=== PATIENT | male | born 1965 | race Caucasian/White ===

== ENCOUNTER 2019-05-19 23:54 | Emergency (ER) | payer SELFPAY ==
--- NOTE | 2019-05-20 00:58 | ED ---
Upper Extremity Pain - HPI Summary HPI Summary: Patient complains of left wrist pain status post fall. Patient admits to EtOH at a [employer] this evening. Patient states fall due to slipping on a apple. Fall was witnessed, no head injury, LOC. Patient denies vision change, AUSTIN, N/V, any other pain, injury or symptoms. Patient ambulatory. - History of Current Complaint Chief Complaint: EDExtremityUpper Stated Complaint: FALL, LEFT WRIST INJURY PER PT Time Seen by Provider: 05/20/19 00:52 Hx Obtained From: Patient Mechanism Of Injury: Fall From A Standing Position Onset/Duration: Started Hours Ago Timing: Constant Severity Initially: Moderate Severity Currently: Moderate Pain Location: Wrist Character: Dull, Aching, Throbbing Aggravating Factor(s): Movement Alleviating Factor(s): Nothing Associated Signs & Symptoms: Positive: Swelling - Allergies/Home Medications Allergies/Adverse Reactions: Allergies Allergy/AdvReac Type Severity Reaction Status Date / Time No Known Allergies Allergy Verified 08/04/14 09:54 PMH/Surg Hx/FS Hx/Imm Hx Endocrine/Hematology History: Denies: Hx Anticoagulant Therapy Cardiovascular History: Denies: Hx Pacemaker/ICD History: Denies: Hx Dialysis Sensory History: Denies: Hx Contacts or Glasses, Hx Hearing Aid Opthamlomology History: Denies: Hx Contacts or Glasses EENT History: Denies: Hx Deafness Neurological History: Denies: Hx Developmental Delay Infectious Disease History: No Infectious Disease History: Reports: Hx Hepatitis - HEP B, MONO 30YRS AGO Denies: Traveled Outside the [place] in Last 30 Days - Family History Known Family History: Positive: Non-Contributory - Social History Alcohol Use: Daily Alcohol Amount: 2-3/NIGHT Substance Use Type: Reports: None Smoking Status (MU): Current Every Day Smoker Length of Time of Smoking/Using Tobacco: 20 YRS Have You Smoked in the Last Year: Yes Review of Systems Constitutional: Negative Eyes: Negative ENT: Negative Cardiovascular: Negative Respiratory: Negative Gastrointestinal: Negative Genitourinary: Negative Musculoskeletal: Other Skin: Negative Neurological: Negative Psychological: Normal All Other Systems Reviewed And Are Negative: Yes Physical Exam - Summary Physical Exam Summary: Swelling and deformity to medial left wrist. No snuffbox tenderness. PMS intact distally. Full range of motion of left elbow. Triage Information Reviewed: Yes Vital Signs On Initial Exam: Initial Vitals Temp Pulse Resp BP Pulse Ox 97.4 F 70 18 110/74 96 05/19/19 23:57 05/19/19 23:57 05/19/19 23:57 05/19/19 23:57 05/19/19 23:57 Vital Signs Reviewed: Yes Appearance: Positive: Well-Appearing Skin: Positive: Warm Head/Face: Positive: Normal Head/Face Inspection Eyes: Positive: Normal Neck: Positive: Supple Respiratory/Lung Sounds: Positive: Clear to Auscultation Cardiovascular: Positive: Normal Abdomen Description: Positive: Nontender Musculoskeletal: Positive: Normal Neurological: Positive: Normal Psychiatric: Positive: Normal AVPU Assessment: Alert - Monica Coma Scale Best Eye Response: 4 - Spontaneous Best Motor Response: 6 - Obeys Commands Best Verbal Response: 5 - Oriented Coma Scale Total: 15 Procedures - Splinting 1 Location: left wrist Hand-Made Type: orthoglass Splint: volar Pre-Proc Neuro Vasc Exam: normal Post-Proc Neuro Vasc Exam: normal Diagnostics - Vital Signs Vital Signs Temp Pulse Resp BP Pulse Ox 05/19/19 23:57 97.4 F 70 18 110/74 96 - Laboratory Lab Statement: Any lab studies that have been ordered have been reviewed, and results considered in the medical decision making process. Course/Dx - Course Course Of Treatment: Patient complains of left wrist pain status post fall. Patient admits to EtOH at a [employer] this evening. Patient states fall due to slipping on a apple. Fall was witnessed, no head injury, LOC. Patient denies vision change, AUSTIN, N/V, any other pain, injury or symptoms. Patient ambulatory. Vital signs within normal limits. X-ray positive for distal radius fracture. Volar splint applied by this provider. - Diagnoses Provider Diagnoses: Distal radius fracture, left Discharge ED - Sign-Out/Discharge Documenting (check all that apply): Patient Departure Patient Received Moderate/Deep Sedation with Procedure: No - Discharge Plan Condition: Stable Disposition: HOME Prescriptions: Oxycodone HCl 5 mg PO Q6H 2 Days #6 tablet MDD 4 tabs Patient Education Materials: Wrist Fracture in Adults (ED) Referrals: No Primary Care Phys,NOPCP [Primary Care Provider] - Danny Teran MD [Medical Doctor] - Additional Instructions: Call clinic of orthopedics Dr. Teran today to arrange appointment for further evaluation. - Billing Disposition and Condition Condition: STABLE Disposition: Home
[2019-05-20] MEDS ORDERED: Ibuprofen TAB* 600 MG PO ONE (01:17)
[2019-05-20] MEDS ORDERED: Ibuprofen TAB* 800 MG PO ONE (01:21)
[2019-05-20 05:12] VITALS: BP 142/81
--- NOTE | 2019-05-20 11:29 | PN ---
Progress Note - Progress Note Date of Service: 05/19/19 Note: Xray wrist per radiology: IMPRESSION: TRANSVERSE NONDISPLACED FRACTURE OF THE DISTAL RADIUS WITH A SLIGHTLY DISPLACED FRACTURE OF THE STYLOID PROCESS OF THE ULNA. R2 Preliminary Imaging Read No change in treatment needed at this time.
== END 2019-05-20 05:10 | disposition home or self-care (01) ==
LOC: ED 23:54
DX: S52.502A Unspecified fracture of the lower end of left radius, initial encounter for closed fracture (principal); M25.532 Pain in left wrist; R60.0 Localized edema; F17.210 Nicotine dependence, cigarettes, uncomplicated; W19.XXXA Unspecified fall, initial encounter; Y92.9 Unspecified place or not applicable
CPT/HCPCS: 99282; A9270-GY

== ENCOUNTER 2019-07-26 19:40 | Emergency (ER) | payer SELFPAY ==
--- NOTE | 2019-07-26 19:49 | ED ---
Substance Abuse/Use - HPI Summary HPI Summary: This pt is a 54 Y/ O M brought into [facility] by EMS for public intoxication. EMS states that he was found on his back when they arrived to the scene. He states that he was out drinking. He denies any fevers, chills, N/V, SOB, headaches, and CP. He states no aggravating or alleviating factors. He has no pertinent PMHx. He is a level 5 caveat due to his altered mental status. - History Of Current Complaint Chief Complaint: EDSubstanceAbuse Stated Complaint: ETOH PER EMS Time Seen by Provider: 07/26/19 19:46 Hx Obtained From: Patient, EMS Hx From Patient Unobtainable Due To: Altered Mental Status - Pt is a level 5 caveat due to his level of intoxication Severity Currently: Severe Aggravating Factor(s): Nothing Alleviating Factor(s): Nothing Associated Signs And Symptoms: Negative - fevers, chills, N/V, SOB, headaches, and CP - Allergies/Home Medications Allergies/Adverse Reactions: Allergies Allergy/AdvReac Type Severity Reaction Status Date / Time No Known Allergies Allergy Verified 08/04/14 09:54 Home Medications: Home Medications NK [No Home Medications Reported] 07/26/19 [History Confirmed 07/26/19] PMH/Surg Hx/FS Hx/Imm Hx Previously Healthy: Yes Endocrine/Hematology History: Denies: Hx Anticoagulant Therapy Cardiovascular History: Denies: Hx Pacemaker/ICD History: Denies: Hx Dialysis Sensory History: Denies: Hx Contacts or Glasses, Hx Deafness, Hx Hearing Aid Opthamlomology History: Denies: Hx Contacts or Glasses Neurological History: Denies: Hx Developmental Delay Infectious Disease History: Reports: Hx Hepatitis - HEP B, MONO 30YRS AGO - Family History Known Family History: Positive: Other - Pt is unable to remember due to his level of intoxication - Social History Occupation: Employed Full-time Lives: Alone Alcohol Use: Daily Alcohol Amount: 2-3/NIGHT Hx Substance Use: No Substance Use Type: Reports: None Hx Tobacco Use: Yes Smoking Status (MU): Current Every Day Smoker Length of Time of Smoking/Using Tobacco: 20 YRS Have You Smoked in the Last Year: Yes Review of Systems - ROS Summary Review of Systems Summary: THIS PT IS A LEVEL 5 CAVEAT DUE TO HIS LEVEL OF INTOXICATION Negative: Fever, Chills Negative: Chest Pain Negative: Shortness Of Breath Negative: Vomiting, Nausea Neurological: Other - intoxicated Negative: Headache All Other Systems Reviewed And Are Negative: Yes Physical Exam - Summary Physical Exam Summary: THIS PT IS A LEVEL 5 CAVEAT DUE TO HIS LEVEL OF INTOXICATION. Appearance: Well-appearing, Well-nourished, lying in bed comfortable, No obvious signs of trauma Skin: Warm, dry, no obvious rash Eyes: sclera anicteric, no conjunctival pallor ENT: mucous membranes moist Neck: deferred Respiratory: No signs of respiratory distress Cardiovascular: Appears well perfused, pulses are nml Abdomen: deferred Musculoskeletal: Moving all 4 extremities without obvious discomfort Neurological: Awake and alert, mentation is normal, speech is slurred, obviously intoxicated. Psychiatric: affect is normal, does not appear anxious or depressed Triage Information Reviewed: Yes Vital Signs Reviewed: Yes Completion Of Physical Exam Limited Due To: Level 5 - DUE TO HIS LEVEL OF INTOXICATION Procedures - Sedation Patient Received Moderate/Deep Sedation with Procedure: No Course/Dx - Course Course Of Treatment: This pt is a 54 Y/ O M brought into [facility] by EMS for public intoxication. EMS states that he was found on his back when they arrived to the scene. He states that he was out drinking. He is a level 5 caveat due to his altered mental status. His PE found no obvious signs of trauma and found that he is heavily intoxicated. He will be discharged home when his KATJA has lowered to acceptable levels. - Diagnoses Provider Diagnoses: Alcohol intoxication Discharge ED - Sign-Out/Discharge Documenting (check all that apply): Patient Departure - Discharge Plan Condition: Improved Disposition: HOME Patient Education Materials: Alcohol Intoxication (ED) Referrals: [facility] [Outside] - If Needed [facility] [Outside] - If Needed - Billing Disposition and Condition Condition: IMPROVED Disposition: Home - Attestation Statements Document Initiated by Scribe: Yes Documenting Scribe: Maxime Boone Provider For Whom Maryann is Documenting (Include Credential): Óscar Emanuel MD Scribe Attestation: Maxime De Luna, scribed for Óscar Emanuel MD on 07/27/19 at 1826. Scribe Documentation Reviewed: Yes Provider Attestation: The documentation as recorded by the Maxime avalos accurately reflects the service I personally performed and the decisions made by meÓscar MD Status of Scribe Document: Viewed
--- OUTSIDE RECORDS SUMMARY | 2019-07-27 02:17 | XMS REPORT | Continuity of Care Document ---
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 Problems Description No Information Available Social History Type Date Description Comments Sex Unknown ETOH Use Currently consumes 14 drinks per week alcohol Tobacco Use Start: Unknown Patient is a current smoke 1/2 pack per smoker, smokes every day day Smoking Status Reviewed: 07/24/19 Patient is a current smoke 1/2 pack per smoker, smokes every day day Exercise Exercises regularly Type/Frequency Allergies, Adverse Reactions, Alerts Description No Known Drug Allergies Medications Description No Active Medications Immunizations Description No Information Available Vital Signs Date Vital Result Comment 07/24/2019 8:01am Height 71 inches 5'11" Weight 235.00 lb Heart Rate 76 /min Body Temperature 97.5 F O2 % BldC Oximetry 97 % BMI (Body Mass Index) 32.8 kg/m2 06/26/2019 9:38am Height 71 inches 5'11" Weight 235.00 lb BP Systolic 164 mmHg BP Diastolic 94 mmHg Body Temperature 98.0 F BMI (Body Mass Index) 32.8 kg/m2 Results Description No Information Available Procedures Date Code Description Status 05/27/2019 87024 Short Arm Cast Application Completed Medical Devices Description No Information Available Encounters Type Date Location Provider Dx Diagnosis Office Visit 06/26/2019 [facility] Karma Gonzalez S52.612D [facility] subs for clos fx w routn heal S52.552D Oth extrartic fx low end l rad, 7thD Office Visit 06/12/2019 10:15a [facility] Karma S52.612D Disp fx of l at [facility] M.D. ulna styloid pro, subs for clos fx w routn heal S52.552D Oth extrartic fx low end l rad, 7thD Office Visit 06/05/2019 8:30a [facility] Saira Stone, S52.612D Disp fx of l at [place] RPA-C ulna styloid pro, subs for clos fx w routn heal S52.552D Oth extrartic fx low end l rad, 7thD Office Visit 05/27/2019 9:30a [facility] Karma S52.612A Disp fx of Orthopedics at [facility]. left ulna [place] styloid process, init for clos fx S52.552A Oth extrartic fracture of lower end of left radius, init Assessments Date Code Description Provider 07/24/2019 S52.612D Displaced fracture of left ulna styloid Saira Bitting, RPA-C process, subsequent encounter for closed fracture with routine healing 07/24/2019 S52.552D Other extraarticular fracture of lower end Saira Bitting, RPA-C of left radius, subsequent encounter for closed fracture with routine healing 06/26/2019 S52.612D Displaced fracture of left ulna styloid Karma Gonzalez M.D. process, subsequent encounter for closed fracture with routine healing 06/26/2019 S52.552D Other extraarticular fracture of lower end Karma Gonzalez M.D. of left radius, subsequent encounter for closed fracture with routine healing 06/12/2019 S52.612D Displaced fracture of left ulna styloid Karma Gonzalez M.D. process, subsequent encounter for closed fracture with routine healing 06/12/2019 S52.552D Other extraarticular fracture of lower end Karma Gonzalez M.D. of left radius, subsequent encounter for closed fracture with routine healing 06/05/2019 S52.612D Displaced fracture of left ulna styloid Saira Bitting, RPA-C process, subsequent encounter for closed fracture with routine healing 06/05/2019 S52.552D Other extraarticular fracture of lower end Saira Bitting, RPA-C of left radius, subsequent encounter for closed fracture with routine healing 05/27/2019 S52.612A Displaced fracture of left ulna styloid Karma Gonzalez M.D. process, initial encounter for closed fracture 05/27/2019 S52.552A Other extraarticular fracture of lower end Karma Gonzalez M.D. of left radius, initial encounter for closed fracture Plan of Treatment 07/24/2019 - Saira Stone, [facility]-[id number] Displaced fracture of left ulna styloid process, subsequent encounter for closed fracture with routine [id number] Other extraarticular fracture of lower end of left radius, subsequent encounter for closed fracture with routine healingNew Therapy: Physical TherapyFollow up:Follow up: As needed Functional Status Description No Information Available Mental Status Description No Information Available Referrals Description No Information Available
--- OUTSIDE RECORDS SUMMARY | 2019-07-27 02:17 | XMS REPORT | Continuity of Care Document ---
:1965 External Reference #:[id number] Author Name Karma Gonzalez M.D. (transmitted by agent of provider Karl Andres) Address [address] [place] [address] Care Team Providers Name Role Phone Patient's Choice Care Team Information [place] Upholsterer Unavailable Problems Description No Information Available Social History Type Date Description Comments Sex Unknown ETOH Use Currently consumes 14 drinks per week alcohol Tobacco Use Start: Unknown Patient is a current smoke 1/2 pack per smoker, smokes every day day Smoking Status Reviewed: 06/26/19 Patient is a current smoke 1/2 pack per smoker, smokes every day day Exercise Exercises regularly Type/Frequency Allergies, Adverse Reactions, Alerts Description No Known Drug Allergies Medications Active Medications SIG Qnty Indications Ordering Provider Date Oxycodone HCL 1-2 tabs po q 60tabs Norman Keenan, 07/30/2014 5mg Tablets 3-6 hrs prn M.D. Hydrocodone/Acetaminop Unknown hen Immunizations Description No Information Available Vital Signs Date Vital Result Comment 06/26/2019 9:38am Height 71 inches 5'11" Weight 235.00 lb BP Systolic 164 mmHg BP Diastolic 94 mmHg Body Temperature 98.0 F BMI (Body Mass Index) 32.8 kg/m2 06/12/2019 9:54am Height 71 inches 5'11" Weight 230.00 lb Heart Rate 116 /min BP Systolic 164 mmHg BP Diastolic 82 mmHg BMI (Body Mass Index) 32.1 kg/m2 Results Description No Information Available Procedures Date Code Description Status 05/27/2019 24987 Short Arm Cast Application Completed Medical Devices Description No Information Available Encounters Type Date Location Provider Dx Diagnosis Office Visit 06/12/2019 [facility] Karma Gonzalez, S52.612D Disp fx of l 10:15a at [facility] ulna styloid pro, subs for clos fx w routn heal S52.552D Oth extrartic fx low end l rad, 7thD Office Visit 06/05/2019 8:30a [facility] Saira Stone, S52.612D Disp fx of l at [place] RPA-C ulna styloid pro, subs for clos fx w routn heal S52.552D Oth extrartic fx low end l rad, 7thD Office Visit 05/27/2019 9:30a [facility] Karma S52.612A Disp fx of Orthopedics at [facility] Gonzalez left ulna [place] styloid process, init for clos fx S52.552A Oth extrartic fracture of lower end of left radius, init Assessments Date Code Description Provider 06/26/2019 S52.612D Displaced fracture of left ulna stylboom Gonzalez M.D. process, subsequent encounter for closed [...] encounter for closed fracture Plan of Treatment Future Appointment(s):07/24/2019 8:15 am - Karma Gonzalez M.D. at [facility] at [facility]/26/2019 - Karma Gonzalez M.D.S52.612D Displaced fracture of left ulna styloid process, subsequent encounter for closed fracture with routine healingNew Xrays:Wrist Left 2 VWS, Ordered: 06/26/19New Therapy: Physical TherapyFollow up:Follow up: 4 [id number] Other extraarticular fracture of lower end of left radius, subsequent encounter for closed fracture with routine healingNew Xrays:Wrist Left 2 VWS, Ordered: 06/26/19 Functional Status Description No Information Available Mental Status Description No Information Available Referrals Description No Information Available
--- OUTSIDE RECORDS SUMMARY | 2019-07-27 02:17 | XMS REPORT | Continuity of Care Document ---
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 Problems Description No Information Available Social History Type Date Description Comments Sex Unknown ETOH Use Currently consumes 14 drinks per week alcohol Tobacco Use Start: Unknown Patient is a current smoke 1/2 pack per smoker, smokes every day day Smoking Status Reviewed: 06/05/19 Patient is a current smoke 1/2 pack [...] Available Vital Signs Date Vital Result Comment 06/05/2019 9:01am Height 71 inches 5'11" Weight 235.00 lb Heart Rate 100 /min BP Systolic 200 mmHg BP Diastolic 100 mmHg Body Temperature 98.2 F Pain Level 3 BMI (Body Mass Index) 32.8 kg/m2 05/27/2019 9:56am Height 71 inches 5'11" Weight 235.50 lb Heart Rate 76 /min BP Systolic 168 mmHg BP Diastolic 98 mmHg Respiratory Rate 14 /min Pain Level 8 BMI (Body Mass Index) 32.8 kg/m2 Results Description No Information Available Procedures Date Code Description Status 05/27/2019 89179 Short Arm Cast Application Completed Medical Devices Description No Information Available Encounters Type Date Location Provider Dx Diagnosis Office Visit 05/27/2019 [facility], S52.612A Disp fx of left 9:30a [facility] ulna styloid process, init for clos fx S52.552A Oth extrartic fracture of lower end of left radius, init Assessments Date Code Description Provider 06/05/2019 S52.612D Displaced fracture of left ulna styloid Saira RACHELLE Stone-C process, subsequent encounter for closed fracture with routine healing 06/05/2019 S52.552D Other extraarticular fracture of lower end Saira Merlyanthony, RPA-C of left radius, subsequent encounter for closed fracture with routine healing 05/27/2019 S52.612A Displaced fracture of left ulna styloid Karma Gonzalez M.D. process, initial encounter for closed fracture 05/27/2019 S52.552A Other extraarticular fracture of lower end Karma Gonzalez M.D. of left radius, initial encounter for closed fracture Plan of Treatment Future Appointment(s):06/12/2019 10:15 am - [facility]06/05/2019 - Saira Morelandanthony, RACHELLE-CS52.612D Displaced fracture of left ulna styloid process, subsequent encounter for closed fracture with routine healingNew Xrays:Wrist Left 2 VWS, Ordered: 06/05/19Follow up:Follow up : 1 weekS52.552D Other extraarticular fracture of lower end of left radius, subsequent encounter for closed fracture with routine healingNew Xrays:Wrist Left 2 VWS, Ordered: 06/05/19 Functional Status Description No Information Available Mental Status Description No Information Available Referrals Description No Information Available
[2019-07-27 02:24] VITALS: BP 106/60
== END 2019-07-27 02:14 | disposition home or self-care (01) ==
LOC: ED 19:40
DX: F10.929 Alcohol use, unspecified with intoxication, unspecified (principal); F17.200 Nicotine dependence, unspecified, uncomplicated
CPT/HCPCS: 99283

== ENCOUNTER 2021-10-20 16:54 | Observation (INO) ==
[2021-10-20 18:41] LABS: ABS Eosinophils 0.1 10^3/ul (0-0.6); ABS Lymphocytes 1.1 10^3/ul (1.0-4.8); ABS Monocytes 0.8 10^3/ul (0-0.8); Eosinophil % 0.8 %; Hematocrit 48 % (42-52); Hemoglobin 16.6 g/dL (14.0-18.0); Lymphocyte % 12.4 %; Mean Corpuscular HGB Conc 34 g/dL (31-36); Mean Corpuscular Hemoglobin 33 pg (27-31); Mean Corpuscular Volume 97 fL (80-94); Mean Platelet Volume 8.8 fL (7.4-10.4); Nucleated Red Blood Cells % 0.1; Platelet Count 124 10^3/uL (150-450); Red Blood Count 5.01 10^6 /uL (4.18-5.48); Red Cell Distribution Width 13 % (10-15)
[2021-10-20 18:47] LABS: INR 1.35 (0.86-1.15)
[2021-10-20 19:05] LABS: Albumin 3.4 g/dL (3.2-5.2); Albumin/Globulin Ratio 0.7 (1-3); C Reactive Protein 4.53 mg/L (<8.01); Calcium 10.3 mg/dL (8.6-10.3); Globulin 4.8 g/dL (2-4); Potassium 3.9 mmol/L (3.5-5.0); Total Bilirubin 1.4 mg/dL (0.2-1.0); Total Protein 8.2 g/dL (6.4-8.9); eGFR CKD-EPI 102.2 (>60)
[2021-10-20] MEDS ORDERED: Lactated Ringers 1000 ml BAG 1,000 ML IV ONE (19:15)
[2021-10-20] MEDS ORDERED: Ondansetron 4 mg VIAL 2 MG/ML 2 ml VIAL IV ONE (19:15)
[2021-10-20 20:20] LABS: Rapid COVID-19 Molecular Undetected (Undetected)
[2021-10-20] MEDS ORDERED: Iohexol 300 (CONTRAST) 10 ML SDV IV ONE (20:26)
[2021-10-20] MEDS ORDERED: fentaNYL 100 mcg/2 ml 50 MCG/ML VIAL IV SLOW PU ONE ×2 (23:29→23:39)
[2021-10-21] MEDS ORDERED: Ondansetron 4 mg VIAL 2 MG/ML 2 ml VIAL IV PRN (01:14)
[2021-10-21] MEDS: Heparin 5000 UNITS/ML 1 mL VIAL SUBCUT SCH ×3 (06:00→21:09)
[2021-10-21] MEDS ORDERED: Albuterol HFA INHALER 8 gm MDI INH PRN (07:33)
[2021-10-21] MEDS ORDERED: Furosemide 40 mg/4 ml IV VIAL IV SCH ×2 (09:00)
[2021-10-21 18:43] LABS: Body Fluid Appearance Cloudy; Body Fluid Color Yellow; Body Fluid Source Peritonial Fluid
[2021-10-21 19:28] LABS: Body Fluid WBC 385 /mcL
[2021-10-21 19:47] LABS: Body Fluid Mono 69 %; Body Fluid Total Cells Counted 200
[2021-10-22] MEDS: Heparin 5000 UNITS/ML 1 mL VIAL SUBCUT SCH (05:59)
[2021-10-22 06:26] LABS: Hematocrit 42 % (42-52); Hemoglobin 14.5 g/dL (14.0-18.0); Mean Corpuscular HGB Conc 34 g/dL (31-36); Mean Corpuscular Hemoglobin 33 pg (27-31); Mean Corpuscular Volume 97 fL (80-94); Mean Platelet Volume 9.1 fL (7.4-10.4); Platelet Count 105 10^3/uL (150-450); Red Blood Count 4.39 10^6 /uL (4.18-5.48); Red Cell Distribution Width 13 % (10-15); White Blood Count 4.9 10^3/uL (3.5-10.8)
[2021-10-22 06:48] LABS: Albumin 2.9 g/dL (3.2-5.2); Albumin/Globulin Ratio 0.8 (1-3); Calcium 9.1 mg/dL (8.6-10.3); Globulin 3.8 g/dL (2-4); Potassium 3.7 mmol/L (3.5-5.0); Total Bilirubin 1.2 mg/dL (0.2-1.0); Total Protein 6.7 g/dL (6.4-8.9)
[2021-10-22] MEDS ORDERED: Nicotine PATCH 14 MG/24 HR PATCH TRANSDERM SCH ×2 (07:00→09:00)
[2021-10-22] MEDS ORDERED: Potassium Chlor 20 meq TAB.ER PO SCH (09:00)
[2021-10-22 13:26] VITALS: BP 138/85
[2021-10-24 13:22] LABS: Fluid Type, Protein, Total PERITONEAL; Total Protein, BF 3.5 g/dL
== END 2021-10-22 13:15 | disposition home or self-care (01) ==
LOC: ED 16:54 → INTOOBSV 10-21 00:46 → SSU 10-21 00:46 → SUATTDRO 10-21 00:46 → ED 10-21 02:08
PROVIDERS: ADMIT Student in an Organized Health Care Education/Training Program; ATTEND Internal Medicine